=== PATIENT | male | born 1960 | race Caucasian/White ===

== ENCOUNTER 2017-09-27 13:19 | Inpatient (IN) ==
[2017-09-27 13:56] LABS: Basophils # 0.1 10*3/uL (0.0-0.2); Basophils % 0.6 % (0.0-0.8); Eosinophils # 0.3 10*3/uL (0.0-0.87); Eosinophils % 3.3 % (0.00-10.9); Hematocrit 38.7 VOL% (42.0-52.0); Hemoglobin 12.3 GM/DL (14.0-18.0); Immature Granulocytes % 0.4 %; Immature Granulocytes Absolute 0.03 #; Lymphocytes # 2.8 10*3/uL (1.4-4.0); Lymphocytes % 32.8 % (21.2-54.2); Mean Corpuscular HGB Conc 31.8 GM/DL (32-36); Mean Corpuscular Hemoglobin 26 PG (27-34); Mean Corpuscular Volume 80.3 FL (87-102); Mean Platelet Volume 11.3 FL (9.6-12.0); Monocytes % 11.7 % (1.7-12.7); Neutrophils # 4.3 10*3/uL (1.4-7.4); Neutrophils % 51.2 % (38.7-73.9); Platelet Count 430 T/CUMM (130-400); Red Blood Count 4.82 MC/CUMM (3.8-5.5); Red Cell Distribution Width 17.2 % (9.3-17.3); White Blood Count 8.5 T/CUMM (4-12)
[2017-09-27 14:13] LABS: INR 1.1; PT Patient Result 11.2 SECS; Partial Thromboplastin Time 30.5 SECS (0-40)
[2017-09-27] MEDS ORDERED: ALBUTEROL NEB SOLN 5 MG/ML 20 ML/BOTTLE CONT NEB STA (14:15)
[2017-09-27] MEDS ORDERED: PANTOPRAZOLE 40 MG VIAL IV STA (14:15)
[2017-09-27] MEDS ORDERED: METOCLOPRAMIDE 10 MG/2 ML VIAL IV STA (14:15)
[2017-09-27] MEDS ORDERED: methylPREDNISolone SOD SUC 125 MG/2 ML VIAL IV STA (14:15)
[2017-09-27 14:18] LABS: Alanine Aminotransferase 19 U/L (16-61); Albumin 3.4 G/DL (3.4-5.0); Alkaline Phosphatase 138 U/L (45-117); Aspartate Amino Transferase 13 U/L (0-37); Bilirubin,Total < 0.39 MG/DL (0.2-1.0); Blood Urea Nitrogen 9 MG/DL (7-18); Calcium 9.6 MG/DL (8.5-10.1); Glucose 96 MG/DL (74-106); Osmolality,Calculated 271.8 MOS/KG (273-304); Potassium 4.3 MMOL/L (3.5-5.1); Sodium 137 MMOL/L (136-145); Total Protein 8.4 G/DL (6.4-8.3)
[2017-09-27 16:25] LABS: Troponin I Only < 0.015 NG/ML (0.00-0.045)
[2017-09-27 16:28] LABS: % Iron Saturation 30.8 % (18-50)
[2017-09-27] MEDS ORDERED: ACETAMINOPHEN 325 MG TABLET PO PRN (17:23)
[2017-09-27] MEDS ORDERED: ONDANSETRON 4 MG/2 ML VIAL IV PRN (17:23)
[2017-09-27] MEDS ORDERED: SODIUM CHLORIDE 0.9% 1,000 ML IV PRN (17:26)
[2017-09-27] MEDS ORDERED: SODIUM CHLORIDE 0.9% 1,000 ML IV ONE (17:27)
[2017-09-27] MEDS ORDERED: PANTOPRAZOLE INJ 200 MG in SODIUM CHLORIDE 0.9% 250 ML IV SCH (17:30)
[2017-09-27] MEDS ORDERED: ALBUTEROL 2.5 MG/3 ML NEB RESP TX PRN (17:32)
[2017-09-27] MEDS ORDERED: LEVOFLOXACIN INJ 100 ML IV ONE (18:23)
[2017-09-27] MEDS: LEVOFLOXACIN INJ 500 MG in PREMIX 1 EACH IV SCH (18:30)
[2017-09-27] MEDS: ALBUTEROL/IPRATROPIUM 3 ML NEB RESP TX SCH (20:01)
[2017-09-27] MEDS: PANTOPRAZOLE 40 MG VIAL IV SCH (21:08)
[2017-09-27] MEDS: FLUTICASONE/SALMETEROL 250-50 DISKUS 14 DOSE INH SCH (21:08)
[2017-09-27] MEDS: FERROUS SULFATE 325 MG TABLET PO SCH (21:08)
[2017-09-27] MEDS: CHANTIX 1MG PO SCH (22:00)
[2017-09-27] MEDS: SODIUM CHLORIDE 0.9% 1,000 ML IV SCH (22:30)
[2017-09-27 22:41] LABS: Hematocrit 32.6 VOL% (42.0-52.0); Hemoglobin 10.2 GM/DL (14.0-18.0)
[2017-09-28] MEDS: ALBUTEROL/IPRATROPIUM 3 ML NEB RESP TX SCH ×4 (02:13→19:53)
[2017-09-28 03:04] LABS: Hematocrit 31.7 VOL% (42.0-52.0); Hematocrit 32.3 VOL% (42.0-52.0); Hemoglobin 10.1 GM/DL (14.0-18.0); Hemoglobin 10.4 GM/DL (14.0-18.0); Immature Granulocytes % 0.2 %; Immature Granulocytes Absolute 0.01 #; Lymphocytes # 1.1 10*3/uL (1.4-4.0); Lymphocytes % 25.7 % (21.2-54.2); Mean Corpuscular HGB Conc 32.8 GM/DL (32-36); Mean Corpuscular Hemoglobin 26 PG (27-34); Mean Corpuscular Volume 78.3 FL (87-102); Mean Platelet Volume 11.3 FL (9.6-12.0); Monocytes # 0.4 10*3/uL (0.11-0.8); Monocytes % 8.6 % (1.7-12.7); Neutrophils # 2.7 10*3/uL (1.4-7.4); Neutrophils % 65.5 % (38.7-73.9); Platelet Count 330 T/CUMM (130-400); Red Blood Count 4.05 MC/CUMM (3.8-5.5); Red Cell Distribution Width 17.2 % (9.3-17.3); White Blood Count 4.1 T/CUMM (4-12)
[2017-09-28] MEDS: methylPREDNISolone SOD SUC 40 MG/1 ML VIAL IV SCH ×2 (03:30→14:29)
[2017-09-28 03:31] LABS: Calcium 8.5 MG/DL (8.5-10.1); Osmolality,Calculated 280.4 MOS/KG (273-304); Potassium 4.1 MMOL/L (3.5-5.1)
[2017-09-28] MEDS: SODIUM CHLORIDE 0.9% 1,000 ML IV SCH ×4 (03:34→22:47)
[2017-09-28 09:17] LABS: Hemoglobin 10.4 GM/DL (14.0-18.0)
[2017-09-28] MEDS: FLUTICASONE/SALMETEROL 250-50 DISKUS 14 DOSE INH SCH ×2 (09:19→21:03)
[2017-09-28] MEDS: PANTOPRAZOLE 40 MG VIAL IV SCH ×2 (09:20→21:03)
[2017-09-28] MEDS: ERGOCALCIFEROL 50,000 UNIT CAPSULE PO SCH (09:20)
[2017-09-28] MEDS: FERROUS SULFATE 325 MG TABLET PO SCH ×3 (09:20→21:03)
[2017-09-28] MEDS: MULTIVITAMIN (CENTRUM) TABLET PO SCH (09:20)
[2017-09-28] MEDS ORDERED: NICOTINE 14 MG/24 HR PATCH TRANSDERM PRN (10:46)
[2017-09-28] MEDS: DOCUSATE SODIUM 100 MG CAPSULE PO SCH ×2 (11:31→21:03)
[2017-09-28 14:03] LABS: Hematocrit 30.8 VOL% (42.0-52.0); Hemoglobin 9.7 GM/DL (14.0-18.0)
[2017-09-28] MEDS: LEVOFLOXACIN INJ 500 MG in PREMIX 1 EACH IV SCH (17:37)
[2017-09-28] MEDS: ACETAMINOPHEN 325 MG TABLET PO PRN (21:02)
[2017-09-29] MEDS: ALBUTEROL/IPRATROPIUM 3 ML NEB RESP TX SCH ×4 (01:24→19:28)
[2017-09-29] MEDS: methylPREDNISolone SOD SUC 40 MG/1 ML VIAL IV SCH ×3 (01:53→20:33)
[2017-09-29 06:50] LABS: Hematocrit 32.3 VOL% (42.0-52.0); Hemoglobin 10.1 GM/DL (14.0-18.0); Immature Granulocytes % 0.7 %; Immature Granulocytes Absolute 0.05 #; Lymphocytes # 1.1 10*3/uL (1.4-4.0); Lymphocytes % 16.1 % (21.2-54.2); Mean Corpuscular HGB Conc 31.3 GM/DL (32-36); Mean Corpuscular Hemoglobin 25 PG (27-34); Mean Corpuscular Volume 80.3 FL (87-102); Mean Platelet Volume 11.6 FL (9.6-12.0); Monocytes # 0.4 10*3/uL (0.11-0.8); Monocytes % 5.3 % (1.7-12.7); Neutrophils # 5.3 10*3/uL (1.4-7.4); Neutrophils % 77.9 % (38.7-73.9); Platelet Count 373 T/CUMM (130-400); Red Blood Count 4.02 MC/CUMM (3.8-5.5); Red Cell Distribution Width 18.2 % (9.3-17.3); White Blood Count 6.8 T/CUMM (4-12)
[2017-09-29 07:17] LABS: Calcium 8.5 MG/DL (8.5-10.1); Osmolality,Calculated 282.1 MOS/KG (273-304)
[2017-09-29] MEDS: SODIUM CHLORIDE 0.9% 1,000 ML IV SCH ×2 (09:02→16:38)
[2017-09-29] MEDS: PANTOPRAZOLE 40 MG VIAL IV SCH ×2 (09:57→20:26)
[2017-09-29] MEDS: FERROUS SULFATE 325 MG TABLET PO SCH ×2 (10:00→16:38)
[2017-09-29] MEDS: FLUTICASONE/SALMETEROL 250-50 DISKUS 14 DOSE INH SCH ×2 (10:00→20:30)
[2017-09-29] MEDS: DOCUSATE SODIUM 100 MG CAPSULE PO SCH ×2 (10:00→20:27)
[2017-09-29] MEDS: CHANTIX 1MG PO SCH ×2 (10:00→20:28)
[2017-09-29] MEDS: MULTIVITAMIN (CENTRUM) TABLET PO SCH (10:00)
[2017-09-29] MEDS ORDERED: BISACODYL 5 MG TABLET PO ONE (12:00)
[2017-09-29] MEDS ORDERED: PROPOFOL 200 MG/20 ML VIAL IV ONE (14:08)
[2017-09-29] MEDS ORDERED: LIDOCAINE 2% 5 ML VIAL ONE (14:08)
[2017-09-29] MEDS: ACETAMINOPHEN 325 MG TABLET PO PRN (16:38)
[2017-09-29] MEDS ORDERED: POLYETHYLENE GLYCOL POWDER 255 GM BOTTLE PO ONE (18:50)
[2017-09-29] MEDS: LEVOFLOXACIN INJ 500 MG in PREMIX 1 EACH IV SCH (18:54)
[2017-09-29] MEDS: NYSTATIN 500,000 UNIT/5 ML UDCUP SWISH/SWAL SCH ×2 (18:55→20:27)
[2017-09-29] MEDS: FLUCONAZOLE 200 MG TABLET PO SCH (18:55)
[2017-09-29] MEDS ORDERED: BISACODYL 5 MG TABLET ONE (19:08)
[2017-09-30] MEDS: SODIUM CHLORIDE 0.9% 1,000 ML IV SCH ×3 (01:46→19:15)
[2017-09-30] MEDS: ALBUTEROL/IPRATROPIUM 3 ML NEB RESP TX SCH ×4 (02:00→20:00)
[2017-09-30] MEDS ORDERED: MAGNESIUM CITRATE 300 ML BOTTLE PO ONE (06:00)
[2017-09-30] MEDS: FLUTICASONE/SALMETEROL 250-50 DISKUS 14 DOSE INH SCH ×2 (10:14→20:57)
[2017-09-30] MEDS: PANTOPRAZOLE 40 MG VIAL IV SCH ×2 (10:14→21:02)
[2017-09-30] MEDS: CHANTIX 1MG PO SCH ×2 (10:15→21:06)
[2017-09-30] MEDS: NYSTATIN 500,000 UNIT/5 ML UDCUP SWISH/SWAL SCH ×4 (10:15→21:02)
[2017-09-30] MEDS: methylPREDNISolone SOD SUC 40 MG/1 ML VIAL IV SCH ×2 (10:16→21:06)
[2017-09-30] MEDS: DOCUSATE SODIUM 100 MG CAPSULE PO SCH ×2 (10:21→20:59)
[2017-09-30] MEDS: FLUCONAZOLE 200 MG TABLET PO SCH (10:21)
[2017-09-30] MEDS: MULTIVITAMIN (CENTRUM) TABLET PO SCH (10:21)
[2017-09-30] MEDS ORDERED: POLYETHYLENE GLYCOL POWDER 255 GM BOTTLE PO ONE (11:59)
[2017-09-30] MEDS: LEVOFLOXACIN INJ 500 MG in PREMIX 1 EACH IV SCH (17:47)
[2017-09-30] MEDS: ACETAMINOPHEN 325 MG TABLET PO PRN (20:58)
[2017-10-01] MEDS: ALBUTEROL/IPRATROPIUM 3 ML NEB RESP TX SCH ×4 (00:20→19:51)
[2017-10-01] MEDS: SODIUM CHLORIDE 0.9% 1,000 ML IV SCH ×3 (03:12→20:58)
[2017-10-01 06:44] LABS: Basophils % 0.1 % (0.0-0.8); Hematocrit 36.1 VOL% (42.0-52.0); Hemoglobin 11.7 GM/DL (14.0-18.0); Immature Granulocytes % 0.7 %; Immature Granulocytes Absolute 0.07 #; Lymphocytes # 2.3 10*3/uL (1.4-4.0); Lymphocytes % 22.6 % (21.2-54.2); Mean Corpuscular HGB Conc 32.4 GM/DL (32-36); Mean Corpuscular Hemoglobin 25 PG (27-34); Mean Corpuscular Volume 78.5 FL (87-102); Mean Platelet Volume 11.9 FL (9.6-12.0); Monocytes % 9.4 % (1.7-12.7); Neutrophils # 6.9 10*3/uL (1.4-7.4); Neutrophils % 67.2 % (38.7-73.9); Platelet Count 449 T/CUMM (130-400); White Blood Count 10.2 T/CUMM (4-12)
[2017-10-01 07:07] LABS: Calcium 8.6 MG/DL (8.5-10.1); Osmolality,Calculated 280.1 MOS/KG (273-304); Potassium 3.6 MMOL/L (3.5-5.1)
[2017-10-01] MEDS: CHANTIX 1MG PO SCH ×2 (08:28→20:57)
[2017-10-01] MEDS: NYSTATIN 500,000 UNIT/5 ML UDCUP SWISH/SWAL SCH ×4 (08:28→20:57)
[2017-10-01] MEDS: FLUCONAZOLE 200 MG TABLET PO SCH (08:28)
[2017-10-01] MEDS: DOCUSATE SODIUM 100 MG CAPSULE PO SCH ×2 (08:28→20:56)
[2017-10-01] MEDS: MULTIVITAMIN (CENTRUM) TABLET PO SCH (08:28)
[2017-10-01] MEDS ORDERED: PROPOFOL 200 MG/20 ML VIAL IV ONE (09:00)
[2017-10-01] MEDS ORDERED: LIDOCAINE 2% 5 ML VIAL ONE (09:00)
[2017-10-01] MEDS: PANTOPRAZOLE 40 MG VIAL IV SCH ×2 (09:20→20:55)
[2017-10-01] MEDS: methylPREDNISolone SOD SUC 40 MG/1 ML VIAL IV SCH ×2 (09:20→20:56)
[2017-10-01] MEDS: FLUTICASONE/SALMETEROL 250-50 DISKUS 14 DOSE INH SCH ×2 (09:21→20:57)
[2017-10-01] MEDS: ACETAMINOPHEN 325 MG TABLET PO PRN (15:00)
[2017-10-01] MEDS: LEVOFLOXACIN INJ 500 MG in PREMIX 1 EACH IV SCH (18:04)
[2017-10-01] MEDS: DORNASE ALFA 2.5 MG/2.5 ML VIAL RESP TX SCH (19:51)
[2017-10-01] MEDS: MONTELUKAST 10 MG TABLET PO SCH (21:03)
[2017-10-01 21:32] LABS: Alanine Aminotransferase 29 U/L (16-61); Albumin 2.7 G/DL (3.4-5.0); Alkaline Phosphatase 81 U/L (45-117); Aspartate Amino Transferase 11 U/L (0-37); Bilirubin,Total < 0.39 MG/DL (0.2-1.0); Blood Urea Nitrogen 8 MG/DL (7-18); Calcium 8.1 MG/DL (8.5-10.1); Glucose 135 MG/DL (74-106); Osmolality,Calculated 282.1 MOS/KG (273-304); Potassium 3.2 MMOL/L (3.5-5.1); Sodium 142 MMOL/L (136-145); Total Protein 6.3 G/DL (6.4-8.3)
[2017-10-02] MEDS: ALBUTEROL/IPRATROPIUM 3 ML NEB RESP TX SCH ×4 (00:29→19:38)
[2017-10-02] MEDS: SODIUM CHLORIDE 0.9% 1,000 ML IV SCH ×3 (05:34→17:15)
[2017-10-02 06:25] LABS: Free T4 (Free Thyroxine) 1.42 NG/DL (0.76-1.46); Thyroid Stimulating Hormone 0.025 uIU/ml (0.358-3.74)
[2017-10-02] MEDS: DORNASE ALFA 2.5 MG/2.5 ML VIAL RESP TX SCH ×2 (07:26→19:38)
[2017-10-02] MEDS: DOCUSATE SODIUM 100 MG CAPSULE PO SCH ×2 (10:19→20:39)
[2017-10-02] MEDS: NYSTATIN 500,000 UNIT/5 ML UDCUP SWISH/SWAL SCH ×4 (10:19→20:39)
[2017-10-02] MEDS: MULTIVITAMIN (CENTRUM) TABLET PO SCH (10:19)
[2017-10-02] MEDS: CHANTIX 1MG PO SCH ×2 (10:19→20:41)
[2017-10-02] MEDS: FLUCONAZOLE 200 MG TABLET PO SCH (10:19)
[2017-10-02] MEDS: PANTOPRAZOLE 40 MG VIAL IV SCH ×2 (10:19→20:45)
[2017-10-02] MEDS: MONTELUKAST 10 MG TABLET PO SCH ×2 (10:20→20:39)
[2017-10-02] MEDS: FLUTICASONE/SALMETEROL 250-50 DISKUS 14 DOSE INH SCH ×2 (10:20→20:41)
[2017-10-02] MEDS: methylPREDNISolone SOD SUC 40 MG/1 ML VIAL IV SCH ×2 (10:20→20:41)
[2017-10-02] MEDS: ACETAMINOPHEN 325 MG TABLET PO PRN (13:15)
[2017-10-02] MEDS: LEVOFLOXACIN INJ 500 MG in PREMIX 1 EACH IV SCH (17:14)
[2017-10-03] MEDS: ALBUTEROL/IPRATROPIUM 3 ML NEB RESP TX SCH ×4 (00:18→19:50)
[2017-10-03] MEDS: SODIUM CHLORIDE 0.9% 1,000 ML IV SCH ×4 (01:33→19:14)
[2017-10-03] MEDS: DORNASE ALFA 2.5 MG/2.5 ML VIAL RESP TX SCH ×2 (07:36→19:50)
[2017-10-03] MEDS: methylPREDNISolone SOD SUC 40 MG/1 ML VIAL IV SCH ×3 (08:09→21:57)
[2017-10-03] MEDS: PANTOPRAZOLE 40 MG VIAL IV SCH ×2 (08:09→21:56)
[2017-10-03] MEDS: FLUTICASONE/SALMETEROL 250-50 DISKUS 14 DOSE INH SCH ×2 (08:10→21:56)
[2017-10-03 08:20] LABS: Basophils % 0.1 % (0.0-0.8); Eosinophils % 0.1 % (0.00-10.9); Hematocrit 35.5 VOL% (42.0-52.0); Hemoglobin 11.3 GM/DL (14.0-18.0); Immature Granulocytes % 0.8 %; Immature Granulocytes Absolute 0.07 #; Lymphocytes # 2.2 10*3/uL (1.4-4.0); Lymphocytes % 26.6 % (21.2-54.2); Mean Corpuscular HGB Conc 31.8 GM/DL (32-36); Mean Corpuscular Hemoglobin 26 PG (27-34); Mean Corpuscular Volume 80.1 FL (87-102); Mean Platelet Volume 10.8 FL (9.6-12.0); Monocytes # 0.8 10*3/uL (0.11-0.8); Monocytes % 9.4 % (1.7-12.7); Neutrophils # 5.3 10*3/uL (1.4-7.4); Platelet Count 369 T/CUMM (130-400); Red Blood Count 4.43 MC/CUMM (3.8-5.5); Red Cell Distribution Width 17.8 % (9.3-17.3); White Blood Count 8.3 T/CUMM (4-12)
[2017-10-03] MEDS: FLUCONAZOLE 200 MG TABLET PO SCH (08:21)
[2017-10-03] MEDS: DOCUSATE SODIUM 100 MG CAPSULE PO SCH ×2 (08:21→21:56)
[2017-10-03] MEDS: CHANTIX 1MG PO SCH ×2 (08:21→21:56)
[2017-10-03] MEDS: NYSTATIN 500,000 UNIT/5 ML UDCUP SWISH/SWAL SCH ×4 (08:21→21:56)
[2017-10-03] MEDS: MULTIVITAMIN (CENTRUM) TABLET PO SCH (08:21)
[2017-10-03] MEDS: MONTELUKAST 10 MG TABLET PO SCH ×2 (08:21→21:56)
[2017-10-03 08:45] LABS: Calcium 8.3 MG/DL (8.5-10.1); Osmolality,Calculated 281.1 MOS/KG (273-304); Potassium 3.8 MMOL/L (3.5-5.1)
[2017-10-03] MEDS ORDERED: PROPOFOL 200 MG/20 ML VIAL IV ONE (12:43)
[2017-10-03] MEDS ORDERED: MIDAZOLAM 2 MG/2 ML VIAL ONE (12:44)
[2017-10-03] MEDS ORDERED: SEVOFLURANE 1 UNIT/15 MINUTE INH ONE (12:44)
[2017-10-03] MEDS ORDERED: ONDANSETRON 4 MG/2 ML VIAL ONE (12:44)
[2017-10-03] MEDS ORDERED: fentaNYL 100 MCG/2 ML VIAL ONE (12:44)
[2017-10-03] MEDS ORDERED: DEXAMETHASONE 10 MG/1 ML VIAL ONE (12:44)
[2017-10-03] MEDS ORDERED: LIDOCAINE 1% 5 ML VIAL ONE (12:44)
[2017-10-03] MEDS ORDERED: ROCURONIUM 100 MG/10 ML VIAL IV ONE (12:45)
[2017-10-03] MEDS ORDERED: GLYCOPYRROLATE 0.4 MG/2 ML VIAL ONE (12:45)
[2017-10-03] MEDS ORDERED: LACTATED RINGERS 1,000 ML IV ONE (12:45)
[2017-10-03] MEDS ORDERED: ACETAMINOPHEN 1,000 MG/100 ML VIAL IV ONE (12:45)
[2017-10-03] MEDS ORDERED: KETOROLAC 30 MG/1 ML VIAL ONE (12:45)
[2017-10-03] MEDS ORDERED: NEOSTIGMINE 10 MG/10 ML VIAL ONE (12:45)
[2017-10-03] MEDS ORDERED: PHENYLEPHRINE 1 MG/10 ML SYRINGE IV ONE (12:45)
[2017-10-03] MEDS: cefOXitin 2,000 MG in SYRINGE 1 EACH IV SCH ×2 (15:55→22:43)
[2017-10-03] MEDS: ACETAMINOPHEN 325 MG TABLET PO PRN (16:01)
[2017-10-03] MEDS: LEVOFLOXACIN INJ 500 MG in PREMIX 1 EACH IV SCH (19:20)
[2017-10-03] MEDS: MORPHINE 4 MG/1 ML VIAL IV PRN ×2 (19:25→22:46)
[2017-10-04] MEDS: MORPHINE 4 MG/1 ML VIAL IV PRN ×3 (01:26→07:48)
[2017-10-04] MEDS: SODIUM CHLORIDE 0.9% 1,000 ML IV SCH ×4 (01:27→23:03)
[2017-10-04] MEDS: ALBUTEROL/IPRATROPIUM 3 ML NEB RESP TX SCH ×4 (02:28→19:42)
[2017-10-04 04:40] LABS: Basophils % 0.1 % (0.0-0.8); Hematocrit 34.2 VOL% (42.0-52.0); Hemoglobin 10.8 GM/DL (14.0-18.0); Immature Granulocytes % 0.6 %; Immature Granulocytes Absolute 0.12 #; Lymphocytes # 1.7 10*3/uL (1.4-4.0); Lymphocytes % 9.2 % (21.2-54.2); Mean Corpuscular HGB Conc 31.6 GM/DL (32-36); Mean Corpuscular Hemoglobin 25 PG (27-34); Mean Corpuscular Volume 80.1 FL (87-102); Mean Platelet Volume 11.5 FL (9.6-12.0); Monocytes # 1.3 10*3/uL (0.11-0.8); Monocytes % 7.1 % (1.7-12.7); Neutrophils # 15.4 10*3/uL (1.4-7.4); Platelet Count 402 T/CUMM (130-400); Red Blood Count 4.27 MC/CUMM (3.8-5.5); Red Cell Distribution Width 17.7 % (9.3-17.3); White Blood Count 18.5 T/CUMM (4-12)
[2017-10-04 05:15] LABS: Calcium 8.4 MG/DL (8.5-10.1); Osmolality,Calculated 272.8 MOS/KG (273-304)
[2017-10-04] MEDS: cefOXitin 2,000 MG in SYRINGE 1 EACH IV SCH (05:31)
[2017-10-04] MEDS: methylPREDNISolone SOD SUC 40 MG/1 ML VIAL IV SCH ×2 (09:05→20:30)
[2017-10-04] MEDS: FLUTICASONE/SALMETEROL 250-50 DISKUS 14 DOSE INH SCH ×2 (09:05→20:20)
[2017-10-04] MEDS: PANTOPRAZOLE 40 MG VIAL IV SCH ×2 (09:06→20:21)
[2017-10-04] MEDS: DORNASE ALFA 2.5 MG/2.5 ML VIAL RESP TX SCH ×2 (09:06→19:42)
[2017-10-04] MEDS ORDERED: MORPHINE 4 MG/1 ML VIAL IV PRN (09:16)
[2017-10-04] MEDS: NYSTATIN 500,000 UNIT/5 ML UDCUP SWISH/SWAL SCH ×4 (09:52→20:22)
[2017-10-04] MEDS: DOCUSATE SODIUM 100 MG CAPSULE PO SCH ×2 (09:52→20:22)
[2017-10-04] MEDS: MULTIVITAMIN (CENTRUM) TABLET PO SCH (09:52)
[2017-10-04] MEDS: FLUCONAZOLE 200 MG TABLET PO SCH (09:52)
[2017-10-04] MEDS: MONTELUKAST 10 MG TABLET PO SCH ×2 (09:53→20:21)
[2017-10-04] MEDS: CHANTIX 1MG PO SCH ×2 (09:53→20:28)
[2017-10-04] MEDS: MORPHINE 10 MG/1 ML VIAL IV PRN ×3 (12:54→20:05)
[2017-10-04] MEDS: LEVOFLOXACIN INJ 500 MG in PREMIX 1 EACH IV SCH (17:52)
[2017-10-05] MEDS: MORPHINE 10 MG/1 ML VIAL IV PRN ×3 (00:41→21:17)
[2017-10-05] MEDS: ALBUTEROL/IPRATROPIUM 3 ML NEB RESP TX SCH ×4 (00:56→20:28)
[2017-10-05 03:58] LABS: Basophils % 0.1 % (0.0-0.8); Hematocrit 33.8 VOL% (42.0-52.0); Immature Granulocytes % 0.6 %; Immature Granulocytes Absolute 0.06 #; Lymphocytes % 9.3 % (21.2-54.2); Mean Corpuscular HGB Conc 32.5 GM/DL (32-36); Mean Corpuscular Hemoglobin 26 PG (27-34); Mean Corpuscular Volume 78.6 FL (87-102); Mean Platelet Volume 11.8 FL (9.6-12.0); Monocytes # 0.6 10*3/uL (0.11-0.8); Monocytes % 5.8 % (1.7-12.7); Neutrophils # 9.2 10*3/uL (1.4-7.4); Neutrophils % 84.2 % (38.7-73.9); Platelet Count 332 T/CUMM (130-400); Red Cell Distribution Width 17.7 % (9.3-17.3); White Blood Count 10.9 T/CUMM (4-12)
[2017-10-05] MEDS: SODIUM CHLORIDE 0.9% 1,000 ML IV SCH ×3 (05:08→22:24)
[2017-10-05] MEDS: ACETAMINOPHEN 325 MG TABLET PO PRN ×3 (05:36→16:11)
[2017-10-05] MEDS: DORNASE ALFA 2.5 MG/2.5 ML VIAL RESP TX SCH ×2 (08:03→20:28)
[2017-10-05] MEDS: MONTELUKAST 10 MG TABLET PO SCH ×2 (08:13→21:03)
[2017-10-05] MEDS: FLUCONAZOLE 200 MG TABLET PO SCH (08:15)
[2017-10-05] MEDS: PANTOPRAZOLE 40 MG VIAL IV SCH ×2 (08:15→21:10)
[2017-10-05] MEDS: methylPREDNISolone SOD SUC 40 MG/1 ML VIAL IV SCH ×2 (08:15→21:06)
[2017-10-05] MEDS: DOCUSATE SODIUM 100 MG CAPSULE PO SCH ×3 (08:15→21:04)
[2017-10-05] MEDS: ERGOCALCIFEROL 50,000 UNIT CAPSULE PO SCH ×2 (08:15→11:36)
[2017-10-05] MEDS: NYSTATIN 500,000 UNIT/5 ML UDCUP SWISH/SWAL SCH ×4 (08:15→21:04)
[2017-10-05] MEDS: MULTIVITAMIN (CENTRUM) TABLET PO SCH (08:15)
[2017-10-05] MEDS: CHANTIX 1MG PO SCH ×2 (08:16→21:05)
[2017-10-05] MEDS: FLUTICASONE/SALMETEROL 250-50 DISKUS 14 DOSE INH SCH ×2 (08:16→21:06)
[2017-10-05] MEDS: LEVOFLOXACIN INJ 500 MG in PREMIX 1 EACH IV SCH (19:19)
[2017-10-06] MEDS: ALBUTEROL/IPRATROPIUM 3 ML NEB RESP TX SCH ×4 (00:55→19:03)
[2017-10-06] MEDS: SODIUM CHLORIDE 0.9% 1,000 ML IV SCH ×2 (04:19→06:06)
[2017-10-06] MEDS: MORPHINE 10 MG/1 ML VIAL IV PRN ×2 (06:08→20:45)
[2017-10-06] MEDS: DORNASE ALFA 2.5 MG/2.5 ML VIAL RESP TX SCH ×2 (07:00→19:03)
[2017-10-06] MEDS: PANTOPRAZOLE 40 MG VIAL IV SCH ×2 (09:46→20:36)
[2017-10-06] MEDS: MULTIVITAMIN (CENTRUM) TABLET PO SCH (09:46)
[2017-10-06] MEDS: MONTELUKAST 10 MG TABLET PO SCH ×2 (09:46→20:31)
[2017-10-06] MEDS: CHANTIX 1MG PO SCH ×2 (09:47→20:31)
[2017-10-06] MEDS: DOCUSATE SODIUM 100 MG CAPSULE PO SCH ×2 (09:47→20:31)
[2017-10-06] MEDS: methylPREDNISolone SOD SUC 40 MG/1 ML VIAL IV SCH ×2 (09:47→20:31)
[2017-10-06] MEDS: FLUTICASONE/SALMETEROL 250-50 DISKUS 14 DOSE INH SCH ×2 (09:47→20:32)
[2017-10-06] MEDS: FLUCONAZOLE 200 MG TABLET PO SCH (09:47)
[2017-10-06] MEDS: NYSTATIN 500,000 UNIT/5 ML UDCUP SWISH/SWAL SCH (09:48)
[2017-10-06 12:11] LABS: Calcium 8.3 MG/DL (8.5-10.1); Osmolality,Calculated 272.7 MOS/KG (273-304); Potassium 4.2 MMOL/L (3.5-5.1)
[2017-10-06] MEDS: LEVOFLOXACIN INJ 500 MG in PREMIX 1 EACH IV SCH (18:05)
[2017-10-07] MEDS: MORPHINE 10 MG/1 ML VIAL IV PRN ×7 (00:55→20:47)
[2017-10-07] MEDS: ALBUTEROL/IPRATROPIUM 3 ML NEB RESP TX SCH ×5 (04:23→22:55)
[2017-10-07 04:32] LABS: Hematocrit 34.5 VOL% (42.0-52.0); Immature Granulocytes % 1.1 %; Immature Granulocytes Absolute 0.22 #; Lymphocytes # 1.2 10*3/uL (1.4-4.0); Mean Corpuscular HGB Conc 31.9 GM/DL (32-36); Mean Corpuscular Hemoglobin 25 PG (27-34); Mean Corpuscular Volume 79.5 FL (87-102); Mean Platelet Volume 11.4 FL (9.6-12.0); Monocytes # 1.7 10*3/uL (0.11-0.8); Monocytes % 8.4 % (1.7-12.7); Neutrophils # 17.3 10*3/uL (1.4-7.4); Neutrophils % 84.5 % (38.7-73.9); Platelet Count 344 T/CUMM (130-400); Red Blood Count 4.34 MC/CUMM (3.8-5.5); Red Cell Distribution Width 17.5 % (9.3-17.3); White Blood Count 20.5 T/CUMM (4-12)
[2017-10-07 04:56] LABS: Calcium 8.7 MG/DL (8.5-10.1)
[2017-10-07 04:57] LABS: Hypochromasia Slight; Osmolality,Calculated 271.1 MOS/KG (273-304); Ovalocytes Slight; Platelet Estimate Adequate; Potassium 4.3 MMOL/L (3.5-5.1)
[2017-10-07] MEDS: DORNASE ALFA 2.5 MG/2.5 ML VIAL RESP TX SCH ×2 (08:16→20:16)
[2017-10-07] MEDS: PANTOPRAZOLE 40 MG VIAL IV SCH ×2 (08:56→20:47)
[2017-10-07] MEDS ORDERED: LACTATED RINGERS 1,000 ML IV ONE ×2 (09:00→15:21)
[2017-10-07] MEDS ORDERED: POTASSIUM CHLORIDE INJ 20 MEQ in LACTATED RINGERS 1,000 ML IV SCH (09:30)
[2017-10-07] MEDS ORDERED: POTASSIUM CHLORIDE RIDER 10 MEQ in PREMIX 1 EACH IV PRN (09:45)
[2017-10-07] MEDS: MULTIVITAMIN (CENTRUM) TABLET PO SCH (10:46)
[2017-10-07] MEDS: MONTELUKAST 10 MG TABLET PO SCH ×2 (10:46→20:07)
[2017-10-07] MEDS: FLUTICASONE/SALMETEROL 250-50 DISKUS 14 DOSE INH SCH ×2 (10:46→20:47)
[2017-10-07] MEDS: DOCUSATE SODIUM 100 MG CAPSULE PO SCH ×2 (10:46→20:04)
[2017-10-07] MEDS: CHANTIX 1MG PO SCH ×2 (10:46→20:06)
[2017-10-07] MEDS: LACTATED RINGERS 1,000 ML IV SCH ×2 (10:47→18:00)
[2017-10-07] MEDS: methylPREDNISolone SOD SUC 40 MG/1 ML VIAL IV SCH ×2 (11:18→20:46)
[2017-10-07] MEDS ORDERED: MIDAZOLAM 2 MG/2 ML VIAL ONE ×2 (12:16→15:21)
[2017-10-07] MEDS ORDERED: SUGAMMADEX 200 MG/2 ML VIAL IV ONE (13:24)
[2017-10-07] MEDS ORDERED: MORPHINE 10 MG/1 ML VIAL ONE (13:52)
[2017-10-07] MEDS ORDERED: ONDANSETRON 4 MG/2 ML VIAL ONE ×2 (13:53→15:21)
[2017-10-07] MEDS ORDERED: ONDANSETRON 4 MG/2 ML VIAL IV PRN (14:03)
[2017-10-07 14:09] LABS: Apearance,Urine CLEAR (Clear); Bilirubin,Urine Negative (Negative); Blood, Urine Negative (Negative); Glucose,Urine (UA) Negative (Negative); Ketones,Urine Negative (Negative); Nitrite,Urine Negative (Negative); Protein,Urine Negative; RBC,Urine 5 /HPF (0-4); Urine Color Yellow (Yellow); Urine Specific Gravity 1.047 (1.001-1.035); WBC,Urine 9 /HPF (0-6)
[2017-10-07] MEDS ORDERED: SEVOFLURANE 1 UNIT/15 MINUTE INH ONE (15:20)
[2017-10-07] MEDS ORDERED: PROPOFOL 200 MG/20 ML VIAL IV ONE (15:20)
[2017-10-07] MEDS ORDERED: fentaNYL 100 MCG/2 ML VIAL ONE (15:20)
[2017-10-07] MEDS ORDERED: ALBUTEROL INHALER 8 GM INH ONE (15:21)
[2017-10-07] MEDS ORDERED: ACETAMINOPHEN 1,000 MG/100 ML VIAL IV ONE (15:21)
[2017-10-07] MEDS ORDERED: ROCURONIUM 100 MG/10 ML VIAL IV ONE (15:21)
[2017-10-07] MEDS ORDERED: PHENYLEPHRINE 1 MG/10 ML SYRINGE IV ONE (15:21)
[2017-10-07] MEDS: cefOXitin 2,000 MG in SYRINGE 1 EACH IV SCH ×2 (15:23→20:47)
[2017-10-07] MEDS: KETOROLAC 15 MG/1 ML VIAL IV SCH ×2 (17:07→22:31)
[2017-10-07] MEDS: LEVOFLOXACIN INJ 500 MG in PREMIX 1 EACH IV SCH (18:00)
[2017-10-08] MEDS: LACTATED RINGERS 1,000 ML IV SCH ×5 (02:03→21:22)
[2017-10-08] MEDS: cefOXitin 2,000 MG in SYRINGE 1 EACH IV SCH ×4 (04:46→21:04)
[2017-10-08] MEDS: MORPHINE 10 MG/1 ML VIAL IV PRN ×5 (04:50→20:51)
[2017-10-08] MEDS: KETOROLAC 15 MG/1 ML VIAL IV SCH (04:50)
[2017-10-08 05:41] LABS: Basophils % 0.1 % (0.0-0.8); Hematocrit 33.8 VOL% (42.0-52.0); Hemoglobin 10.6 GM/DL (14.0-18.0); Immature Granulocytes % 0.5 %; Immature Granulocytes Absolute 0.07 #; Lymphocytes # 1.1 10*3/uL (1.4-4.0); Lymphocytes % 8.4 % (21.2-54.2); Mean Corpuscular HGB Conc 31.4 GM/DL (32-36); Mean Corpuscular Hemoglobin 25 PG (27-34); Mean Corpuscular Volume 80.7 FL (87-102); Mean Platelet Volume 11.5 FL (9.6-12.0); Monocytes % 7.2 % (1.7-12.7); Neutrophils # 11.2 10*3/uL (1.4-7.4); Neutrophils % 83.8 % (38.7-73.9); Platelet Count 287 T/CUMM (130-400); Red Blood Count 4.19 MC/CUMM (3.8-5.5); Red Cell Distribution Width 17.4 % (9.3-17.3); White Blood Count 13.4 T/CUMM (4-12)
[2017-10-08 05:57] LABS: Calcium 7.8 MG/DL (8.5-10.1); Osmolality,Calculated 267.2 MOS/KG (273-304); Potassium 4.4 MMOL/L (3.5-5.1)
[2017-10-08] MEDS: ALBUTEROL/IPRATROPIUM 3 ML NEB RESP TX SCH ×4 (07:20→23:49)
[2017-10-08] MEDS: DORNASE ALFA 2.5 MG/2.5 ML VIAL RESP TX SCH ×2 (07:20→18:58)
[2017-10-08] MEDS: MONTELUKAST 10 MG TABLET PO SCH ×2 (09:06→20:57)
[2017-10-08] MEDS: CHANTIX 1MG PO SCH ×2 (09:06→20:56)
[2017-10-08] MEDS: DOCUSATE SODIUM 100 MG CAPSULE PO SCH ×2 (09:06→20:56)
[2017-10-08] MEDS: FLUTICASONE/SALMETEROL 250-50 DISKUS 14 DOSE INH SCH ×2 (09:06→20:54)
[2017-10-08] MEDS: MULTIVITAMIN (CENTRUM) TABLET PO SCH (09:06)
[2017-10-08] MEDS: PANTOPRAZOLE 40 MG VIAL IV SCH ×2 (09:08→21:10)
[2017-10-08] MEDS: KETOROLAC 30 MG/1 ML VIAL IV SCH ×3 (09:12→21:18)
[2017-10-08] MEDS: methylPREDNISolone SOD SUC 40 MG/1 ML VIAL IV SCH ×2 (09:14→21:14)
[2017-10-08] MEDS ORDERED: LACTATED RINGERS 1,000 ML IV ONE (09:41)
[2017-10-08] MEDS: metroNIDAZOLE INJ 500 MG in PREMIX 1 EACH IV SCH ×2 (11:44→18:41)
[2017-10-08] MEDS: LEVOFLOXACIN INJ 500 MG in PREMIX 1 EACH IV SCH (17:06)
[2017-10-09] MEDS: MORPHINE 10 MG/1 ML VIAL IV PRN ×3 (02:00→12:45)
[2017-10-09] MEDS: cefOXitin 2,000 MG in SYRINGE 1 EACH IV SCH ×4 (03:05→21:53)
[2017-10-09] MEDS: KETOROLAC 30 MG/1 ML VIAL IV SCH ×4 (03:08→21:54)
[2017-10-09] MEDS: metroNIDAZOLE INJ 500 MG in PREMIX 1 EACH IV SCH ×3 (03:10→18:34)
[2017-10-09 06:09] LABS: Basophils % 0.1 % (0.0-0.8); Hematocrit 30.1 VOL% (42.0-52.0); Immature Granulocytes % 0.6 %; Immature Granulocytes Absolute 0.11 #; Lymphocytes # 0.9 10*3/uL (1.4-4.0); Lymphocytes % 4.9 % (21.2-54.2); Mean Corpuscular HGB Conc 33.2 GM/DL (32-36); Mean Corpuscular Hemoglobin 26 PG (27-34); Mean Corpuscular Volume 78.8 FL (87-102); Mean Platelet Volume 12.8 FL (9.6-12.0); Monocytes # 1.2 10*3/uL (0.11-0.8); Monocytes % 6.8 % (1.7-12.7); Neutrophils # 15.7 10*3/uL (1.4-7.4); Neutrophils % 87.6 % (38.7-73.9); Platelet Count 261 T/CUMM (130-400); Red Blood Count 3.82 MC/CUMM (3.8-5.5); Red Cell Distribution Width 17.3 % (9.3-17.3)
[2017-10-09 06:28] LABS: Hypochromasia 1+; Microcytosis 1+; Ovalocytes Slight; Platelet Estimate Normal
[2017-10-09 06:37] LABS: Calcium 7.9 MG/DL (8.5-10.1); Osmolality,Calculated 269.2 MOS/KG (273-304); Potassium 4.1 MMOL/L (3.5-5.1)
[2017-10-09] MEDS: DORNASE ALFA 2.5 MG/2.5 ML VIAL RESP TX SCH ×2 (07:43→20:29)
[2017-10-09] MEDS: ALBUTEROL/IPRATROPIUM 3 ML NEB RESP TX SCH ×3 (07:43→20:27)
[2017-10-09] MEDS: PANTOPRAZOLE 40 MG VIAL IV SCH ×2 (09:30→21:54)
[2017-10-09] MEDS: methylPREDNISolone SOD SUC 40 MG/1 ML VIAL IV SCH ×2 (09:31→21:54)
[2017-10-09] MEDS: LACTATED RINGERS 1,000 ML IV SCH ×4 (09:34→23:40)
[2017-10-09] MEDS: CHANTIX 1MG PO SCH ×2 (09:35→20:28)
[2017-10-09] MEDS: DOCUSATE SODIUM 100 MG CAPSULE PO SCH ×2 (09:35→20:28)
[2017-10-09] MEDS: MONTELUKAST 10 MG TABLET PO SCH ×2 (09:35→20:28)
[2017-10-09] MEDS: FLUTICASONE/SALMETEROL 250-50 DISKUS 14 DOSE INH SCH ×2 (09:35→20:17)
[2017-10-09] MEDS: MULTIVITAMIN (CENTRUM) TABLET PO SCH (09:35)
[2017-10-09] MEDS ORDERED: HEPARIN/NACL 0.9% 2 UNITS/ML 500 ML IV ONE (14:18)
[2017-10-09 15:13] LABS: ABG Base Excess -0.7 MMOL/L (-2.5-2.5); ABG HCO3 23.9 MMOL/L (20-26); ABG Oxygen Saturation 99.9 % (95-100); ABG PCO2 43.8 MM HG (35-48); ABG PH 7.362 (7.35-7.45); ABG TCO2 22.9 MMOL/L (23-27); Glucose Heart Surgery 115 MG/DL (74-106); Hematocrit Heart Surgery 28.7 PERCENT (42-52); Hemoglobin Heart Surgery 9.3 G/DL (14.0-18.0); Ionized Calcium Arterial 1.14 MMOL/L (1.21-1.46); PCO2 Patient Temp Arterial 43.8 MMHG; PH Patient Temp Arterial 7.362; Patient Temperature 37 CELCIUS; Potassium Heart/CVR 3.9 MMOL/L (3.5-5.1); Sodium Heart/CVR 130 MMOL/L (135-145)
[2017-10-09] MEDS ORDERED: PROPOFOL 200 MG/20 ML VIAL IV ONE (16:53)
[2017-10-09] MEDS ORDERED: SEVOFLURANE 1 UNIT/15 MINUTE INH ONE (16:53)
[2017-10-09] MEDS ORDERED: fentaNYL 100 MCG/2 ML VIAL ONE (16:53)
[2017-10-09] MEDS ORDERED: MIDAZOLAM 2 MG/2 ML VIAL ONE (16:53)
[2017-10-09] MEDS ORDERED: MIDAZOLAM 10 MG/2 ML VIAL ONE (16:54)
[2017-10-09] MEDS ORDERED: ROCURONIUM 100 MG/10 ML VIAL IV ONE (16:54)
[2017-10-09] MEDS ORDERED: SODIUM CHLORIDE 0.9% 1,000 ML IV ONE ×2 (16:54→18:47)
[2017-10-09] MEDS ORDERED: LACTATED RINGERS 4,000 ML IV ONE (16:54)
[2017-10-09 16:57] LABS: ABG HCO3 24.9 MMOL/L (20-26); ABG Oxygen Saturation 96.1 % (95-100); ABG PCO2 46.8 MM HG (35-48); ABG PH 7.344 (7.35-7.45); ABG PO2 94.6 MM HG (80-95); ABG TCO2 26.3 MMOL/L (23-27)
[2017-10-09] MEDS: PROPOFOL 1,000 MG/100 ML BOTTLE IV SCH (17:19)
[2017-10-09] MEDS: LEVOFLOXACIN INJ 500 MG in PREMIX 1 EACH IV SCH (18:34)
[2017-10-09 18:57] LABS: Hemoglobin 10.3 GM/DL (14.0-18.0)
[2017-10-09] MEDS: NOREPINEPHRINE 8 MG in SODIUM CHLORIDE 0.9% 242 ML IV PRN (20:10)
[2017-10-09] MEDS: fentaNYL INJ 1,250 MCG in SODIUM CHLORIDE 0.9% 225 ML IV PRN (23:40)
[2017-10-10] MEDS: ALBUTEROL/IPRATROPIUM 3 ML NEB RESP TX SCH ×4 (00:55→19:42)
[2017-10-10] MEDS: NOREPINEPHRINE 8 MG in SODIUM CHLORIDE 0.9% 242 ML IV PRN ×2 (03:30→14:06)
[2017-10-10] MEDS: cefOXitin 2,000 MG in SYRINGE 1 EACH IV SCH ×2 (03:30→10:29)
[2017-10-10] MEDS: KETOROLAC 30 MG/1 ML VIAL IV SCH ×4 (03:32→22:20)
[2017-10-10] MEDS: metroNIDAZOLE INJ 500 MG in PREMIX 1 EACH IV SCH (03:35)
[2017-10-10 05:40] LABS: Basophils # 0.1 10*3/uL (0.0-0.2); Basophils % 0.2 % (0.0-0.8); Hematocrit 31.7 VOL% (42.0-52.0); Hemoglobin 10.1 GM/DL (14.0-18.0); Immature Granulocytes Absolute 0.28 #; Lymphocytes # 0.9 10*3/uL (1.4-4.0); Lymphocytes % 3.3 % (21.2-54.2); Mean Corpuscular HGB Conc 31.9 GM/DL (32-36); Mean Corpuscular Hemoglobin 26 PG (27-34); Mean Corpuscular Volume 80.9 FL (87-102); Mean Platelet Volume 12.3 FL (9.6-12.0); Monocytes # 1.5 10*3/uL (0.11-0.8); Monocytes % 5.3 % (1.7-12.7); Neutrophils # 25.3 10*3/uL (1.4-7.4); Neutrophils % 90.2 % (38.7-73.9); Platelet Count 384 T/CUMM (130-400); Red Blood Count 3.92 MC/CUMM (3.8-5.5); Red Cell Distribution Width 17.2 % (9.3-17.3); White Blood Count 28.1 T/CUMM (4-12)
[2017-10-10] MEDS: LACTATED RINGERS 1,000 ML IV SCH ×4 (05:45→22:16)
[2017-10-10 06:22] LABS: Band Neutrophils 2 % (0-10); Calcium 7.4 MG/DL (8.5-10.1); Hypochromasia 1+; Lymphocytes 5 % (20-55); Microcytosis Slight; Osmolality,Calculated 276.7 MOS/KG (273-304); Platelet Estimate Adequate; Potassium 4.4 MMOL/L (3.5-5.1); Segmented Neutrophils 89 % (50-85); Total Cells Counted 100
[2017-10-10] MEDS: PROPOFOL 1,000 MG/100 ML BOTTLE IV SCH ×2 (06:24→22:09)
[2017-10-10] MEDS ORDERED: MAGNESIUM SULF RIDER 2 GM in PREMIX 1 EACH IV PRN (07:38)
[2017-10-10] MEDS ORDERED: MAGNESIUM SULF RIDER 4 GM in PREMIX 1 EACH IV PRN (07:38)
[2017-10-10] MEDS: DORNASE ALFA 2.5 MG/2.5 ML VIAL RESP TX SCH ×2 (07:48→19:42)
[2017-10-10 08:21] LABS: ABG HCO3 25.3 MMOL/L (20-26); ABG Oxygen Saturation 99.6 % (95-100); ABG PCO2 41.2 MM HG (35-48); ABG PH 7.404 (7.35-7.45); ABG TCO2 23.4 MMOL/L (23-27)
[2017-10-10] MEDS: VANCOMYCIN INJ 1,250 MG in SODIUM CHLORIDE 0.9% 250 ML IV SCH ×2 (09:35→20:30)
[2017-10-10] MEDS: PIPERACILLIN/TAZOBACTAM 3,375 MG in SODIUM CHLORIDE 0.9% 100 ML IV SCH ×2 (09:36→18:06)
[2017-10-10] MEDS: MULTIVITAMIN (CENTRUM) TABLET PO SCH (09:37)
[2017-10-10] MEDS: MONTELUKAST 10 MG TABLET PO SCH ×2 (09:37→21:05)
[2017-10-10] MEDS: PANTOPRAZOLE 40 MG VIAL IV SCH ×2 (09:38→21:10)
[2017-10-10] MEDS: methylPREDNISolone SOD SUC 40 MG/1 ML VIAL IV SCH ×2 (09:38→21:12)
[2017-10-10] MEDS: FLUTICASONE/SALMETEROL 250-50 DISKUS 14 DOSE INH SCH ×2 (10:17→22:15)
[2017-10-10] MEDS: DOCUSATE SODIUM 100 MG CAPSULE PO SCH ×2 (10:17→21:05)
[2017-10-10] MEDS: CHANTIX 1MG PO SCH ×2 (10:17→22:16)
[2017-10-10] MEDS: fentaNYL INJ 1,250 MCG in SODIUM CHLORIDE 0.9% 225 ML IV PRN ×2 (10:54→22:00)
[2017-10-10] MEDS ORDERED: DEXTROSE 50% 25 GM/50 ML VIAL IV PRN (11:58)
[2017-10-10] MEDS ORDERED: GLUCAGON 1 MG VIAL IM PRN (11:58)
[2017-10-10] MEDS: INSULIN REGULAR 100 UNIT/ML SUBCUT SCH ×3 (14:04→23:08)
[2017-10-10] MEDS ORDERED: TRACE ELEMENTS (5) 1 ML, MULTIVITAMIN INJ 10 ML in AMINO ACIDS/DEXT/LYTE 4.25-15% 2,000 ML IV SCH (17:00)
[2017-10-10] MEDS ORDERED: DEXTROSE 10% 1,000 ML IV PRN (17:00)
[2017-10-10] MEDS: LEVOFLOXACIN INJ 500 MG in PREMIX 1 EACH IV SCH (18:07)
[2017-10-11] MEDS: ALBUTEROL/IPRATROPIUM 3 ML NEB RESP TX SCH ×4 (01:19→21:42)
[2017-10-11] MEDS: PIPERACILLIN/TAZOBACTAM 3,375 MG in SODIUM CHLORIDE 0.9% 100 ML IV SCH ×3 (02:15→17:14)
[2017-10-11] MEDS: KETOROLAC 30 MG/1 ML VIAL IV SCH ×4 (04:26→21:03)
[2017-10-11 05:02] LABS: ABG Base Excess 3.9 MMOL/L (-2.5-2.5); ABG HCO3 27.9 MMOL/L (20-26); ABG Oxygen Saturation 98.4 % (95-100); ABG PCO2 48.9 MM HG (35-48); ABG PH 7.388 (7.35-7.45); ABG TCO2 27.5 MMOL/L (23-27)
[2017-10-11 05:22] LABS: Basophils % 0.1 % (0.0-0.8); Hemoglobin 8.2 GM/DL (14.0-18.0); Immature Granulocytes Absolute 0.11 #; Lymphocytes # 0.7 10*3/uL (1.4-4.0); Lymphocytes % 6.2 % (21.2-54.2); Mean Corpuscular HGB Conc 31.5 GM/DL (32-36); Mean Corpuscular Hemoglobin 26 PG (27-34); Mean Corpuscular Volume 80.7 FL (87-102); Monocytes # 0.7 10*3/uL (0.11-0.8); Monocytes % 5.6 % (1.7-12.7); Neutrophils # 10.1 10*3/uL (1.4-7.4); Neutrophils % 87.1 % (38.7-73.9); Platelet Count 283 T/CUMM (130-400); Red Blood Count 3.22 MC/CUMM (3.8-5.5); Red Cell Distribution Width 17.2 % (9.3-17.3); White Blood Count 11.6 T/CUMM (4-12)
[2017-10-11 05:59] LABS: Albumin 1.2 G/DL (3.4-5.0); Bilirubin,Total 0.4 MG/DL (0.2-1.0); Calcium 7.6 MG/DL (8.5-10.1); Osmolality,Calculated 278.5 MOS/KG (273-304); Potassium 4.4 MMOL/L (3.5-5.1)
[2017-10-11 06:05] LABS: Prealbumin 6.6 MG/DL (20-40)
[2017-10-11] MEDS ORDERED: FAMOTIDINE 20 MG TABLET PO ONE (06:45)
[2017-10-11] MEDS ORDERED: IPRATROPIUM 500 MCG/2.5 ML NEB RESP TX ONE (06:45)
[2017-10-11] MEDS ORDERED: FAMOTIDINE 20 MG/2 ML VIAL IV ONE (06:45)
[2017-10-11] MEDS ORDERED: DIAZEPAM 5 MG TABLET PO ONE (06:45)
[2017-10-11] MEDS: INSULIN REGULAR 100 UNIT/ML SUBCUT SCH ×3 (07:14→17:32)
[2017-10-11] MEDS ORDERED: SEVOFLURANE 1 UNIT/15 MINUTE INH ONE (08:41)
[2017-10-11] MEDS ORDERED: fentaNYL 100 MCG/2 ML VIAL ONE (08:42)
[2017-10-11] MEDS ORDERED: MIDAZOLAM 2 MG/2 ML VIAL ONE ×2 (08:42)
[2017-10-11] MEDS: DORNASE ALFA 2.5 MG/2.5 ML VIAL RESP TX SCH ×2 (08:54→21:42)
[2017-10-11] MEDS: VANCOMYCIN INJ 1,250 MG in SODIUM CHLORIDE 0.9% 250 ML IV SCH ×3 (09:11→21:25)
[2017-10-11] MEDS: PANTOPRAZOLE 40 MG VIAL IV SCH ×2 (09:13→21:17)
[2017-10-11] MEDS: methylPREDNISolone SOD SUC 40 MG/1 ML VIAL IV SCH ×2 (09:13→21:10)
[2017-10-11] MEDS: FLUTICASONE/SALMETEROL 250-50 DISKUS 14 DOSE INH SCH ×2 (09:14→21:14)
[2017-10-11] MEDS: LACTATED RINGERS 1,000 ML IV SCH ×2 (09:14→18:10)
[2017-10-11] MEDS: DOCUSATE SODIUM 100 MG CAPSULE PO SCH ×2 (09:14→21:13)
[2017-10-11] MEDS: MULTIVITAMIN (CENTRUM) TABLET PO SCH (09:14)
[2017-10-11] MEDS: MONTELUKAST 10 MG TABLET PO SCH ×2 (09:14→21:13)
[2017-10-11] MEDS: CHANTIX 1MG PO SCH ×2 (09:15→21:14)
[2017-10-11 11:02] LABS: ABG Base Excess 3.4 MMOL/L (-2.5-2.5); ABG HCO3 27.5 MMOL/L (20-26); ABG Oxygen Saturation 97.9 % (95-100); ABG PCO2 44.9 MM HG (35-48); ABG PO2 96.8 MM HG (80-95)
[2017-10-11] MEDS: MORPHINE 10 MG/1 ML VIAL IV PRN ×2 (13:54→17:13)
[2017-10-11] MEDS: TRACE ELEMENTS (5) 1 ML, MULTIVITAMIN INJ 10 ML in AMINO ACIDS/DEXT/LYTE 4.25-15% 2,000 ML IV SCH (17:14)
[2017-10-11] MEDS: LEVOFLOXACIN INJ 500 MG in PREMIX 1 EACH IV SCH (17:42)
[2017-10-11] MEDS: ENOXAPARIN 40 MG/0.4 ML SYRINGE SUBCUT SCH (21:20)
[2017-10-12] MEDS: ALBUTEROL/IPRATROPIUM 3 ML NEB RESP TX SCH ×4 (00:05→19:19)
[2017-10-12] MEDS: LACTATED RINGERS 1,000 ML IV SCH ×2 (00:34→08:31)
[2017-10-12] MEDS: INSULIN REGULAR 100 UNIT/ML SUBCUT SCH ×4 (00:42→17:51)
[2017-10-12] MEDS: PIPERACILLIN/TAZOBACTAM 3,375 MG in SODIUM CHLORIDE 0.9% 100 ML IV SCH ×3 (00:45→17:22)
[2017-10-12] MEDS: KETOROLAC 30 MG/1 ML VIAL IV SCH ×4 (03:30→21:43)
[2017-10-12 03:55] LABS: Allen Test Positive; Pt O2 Delivery Device Other
[2017-10-12 03:56] LABS: ABG Base Excess 5.5 MMOL/L (-2.5-2.5); ABG HCO3 29.4 MMOL/L (20-26); ABG Oxygen Saturation 98.8 % (95-100); ABG PCO2 45.9 MM HG (35-48); ABG TCO2 28.1 MMOL/L (23-27)
[2017-10-12] MEDS: VANCOMYCIN INJ 1,250 MG in SODIUM CHLORIDE 0.9% 250 ML IV SCH ×4 (07:09→21:48)
[2017-10-12] MEDS: DORNASE ALFA 2.5 MG/2.5 ML VIAL RESP TX SCH ×2 (08:53→19:19)
[2017-10-12] MEDS: methylPREDNISolone SOD SUC 40 MG/1 ML VIAL IV SCH ×2 (09:15→21:41)
[2017-10-12] MEDS: PANTOPRAZOLE 40 MG VIAL IV SCH ×2 (09:15→21:38)
[2017-10-12] MEDS: MONTELUKAST 10 MG TABLET PO SCH ×2 (09:16→21:38)
[2017-10-12] MEDS: MULTIVITAMIN (CENTRUM) TABLET PO SCH (09:16)
[2017-10-12] MEDS: FLUTICASONE/SALMETEROL 250-50 DISKUS 14 DOSE INH SCH ×2 (09:34→21:52)
[2017-10-12] MEDS: DOCUSATE SODIUM 100 MG CAPSULE PO SCH ×2 (09:35→21:46)
[2017-10-12] MEDS: CHANTIX 1MG PO SCH ×2 (09:35→21:38)
[2017-10-12] MEDS: ERGOCALCIFEROL 50,000 UNIT CAPSULE PO SCH (10:50)
[2017-10-12] MEDS: MORPHINE 10 MG/1 ML VIAL IV PRN ×2 (13:12→17:25)
[2017-10-12] MEDS: TRACE ELEMENTS (5) 1 ML, MULTIVITAMIN INJ 10 ML in AMINO ACIDS/DEXT/LYTE 4.25-15% 2,000 ML IV SCH (13:43)
[2017-10-12] MEDS ORDERED: FAT EMULSION 20% 250 ML IV SCH (14:00)
[2017-10-12] MEDS: LEVOFLOXACIN INJ 500 MG in PREMIX 1 EACH IV SCH (17:26)
[2017-10-12] MEDS: ENOXAPARIN 40 MG/0.4 ML SYRINGE SUBCUT SCH (21:30)
[2017-10-13] MEDS: INSULIN REGULAR 100 UNIT/ML SUBCUT SCH ×3 (01:17→14:27)
[2017-10-13] MEDS: ALBUTEROL/IPRATROPIUM 3 ML NEB RESP TX SCH ×4 (01:40→19:35)
[2017-10-13] MEDS: PIPERACILLIN/TAZOBACTAM 3,375 MG in SODIUM CHLORIDE 0.9% 100 ML IV SCH ×3 (02:13→18:18)
[2017-10-13] MEDS: KETOROLAC 30 MG/1 ML VIAL IV SCH (02:30)
[2017-10-13 03:36] LABS: ABG Base Excess 6.4 MMOL/L (-2.5-2.5); ABG HCO3 30.2 MMOL/L (20-26); ABG Oxygen Saturation 96.8 % (95-100); ABG PCO2 41.5 MM HG (35-48); ABG PH 7.475 (7.35-7.45); ABG PO2 78.8 MM HG (80-95); ABG TCO2 27.8 MMOL/L (23-27)
[2017-10-13 05:45] LABS: Hematocrit 28.9 VOL% (42.0-52.0); Hemoglobin 9.1 GM/DL (14.0-18.0); Immature Granulocytes % 0.6 %; Immature Granulocytes Absolute 0.06 #; Lymphocytes # 0.9 10*3/uL (1.4-4.0); Lymphocytes % 9.3 % (21.2-54.2); Mean Corpuscular HGB Conc 31.5 GM/DL (32-36); Mean Corpuscular Hemoglobin 26 PG (27-34); Mean Corpuscular Volume 81.2 FL (87-102); Mean Platelet Volume 11.3 FL (9.6-12.0); Monocytes # 0.6 10*3/uL (0.11-0.8); Monocytes % 6.5 % (1.7-12.7); Neutrophils # 7.9 10*3/uL (1.4-7.4); Neutrophils % 83.6 % (38.7-73.9); Platelet Count 328 T/CUMM (130-400); Red Blood Count 3.56 MC/CUMM (3.8-5.5); Red Cell Distribution Width 17.1 % (9.3-17.3); White Blood Count 9.4 T/CUMM (4-12)
[2017-10-13 06:14] LABS: Calcium 7.3 MG/DL (8.5-10.1); Osmolality,Calculated 278.5 MOS/KG (273-304); Potassium 4.1 MMOL/L (3.5-5.1)
[2017-10-13] MEDS: VANCOMYCIN INJ 1,750 MG in SODIUM CHLORIDE 0.9% 500 ML IV SCH ×3 (06:31→20:57)
[2017-10-13] MEDS: DORNASE ALFA 2.5 MG/2.5 ML VIAL RESP TX SCH ×2 (08:17→19:46)
[2017-10-13] MEDS: MONTELUKAST 10 MG TABLET PO SCH ×2 (10:03→20:55)
[2017-10-13] MEDS: PANTOPRAZOLE 40 MG VIAL IV SCH ×2 (10:03→20:45)
[2017-10-13] MEDS: methylPREDNISolone SOD SUC 40 MG/1 ML VIAL IV SCH (10:04)
[2017-10-13] MEDS: DOCUSATE SODIUM 100 MG CAPSULE PO SCH ×2 (10:04→20:50)
[2017-10-13] MEDS: MULTIVITAMIN (CENTRUM) TABLET PO SCH (10:04)
[2017-10-13] MEDS: TRACE ELEMENTS (5) 1 ML, MULTIVITAMIN INJ 10 ML in AMINO ACIDS/DEXT/LYTE 4.25-15% 2,000 ML IV SCH (10:23)
[2017-10-13] MEDS: CHANTIX 1MG PO SCH ×2 (13:08→20:56)
[2017-10-13] MEDS: FLUTICASONE/SALMETEROL 250-50 DISKUS 14 DOSE INH SCH ×2 (13:08→22:38)
[2017-10-13] MEDS: ACETAMINOPHEN 325 MG TABLET PO PRN (20:49)
[2017-10-13] MEDS: ENOXAPARIN 40 MG/0.4 ML SYRINGE SUBCUT SCH (20:51)
[2017-10-14] MEDS: ALBUTEROL/IPRATROPIUM 3 ML NEB RESP TX SCH ×4 (01:00→19:36)
[2017-10-14] MEDS: PIPERACILLIN/TAZOBACTAM 3,375 MG in SODIUM CHLORIDE 0.9% 100 ML IV SCH ×3 (01:23→18:46)
[2017-10-14] MEDS: VANCOMYCIN INJ 1,750 MG in SODIUM CHLORIDE 0.9% 500 ML IV SCH ×3 (05:33→22:54)
[2017-10-14 05:47] LABS: Basophils % 0.1 % (0.0-0.8); Eosinophils # 0.1 10*3/uL (0.0-0.87); Eosinophils % 0.9 % (0.00-10.9); Hematocrit 29.7 VOL% (42.0-52.0); Hemoglobin 9.8 GM/DL (14.0-18.0); Immature Granulocytes % 0.9 %; Immature Granulocytes Absolute 0.08 #; Lymphocytes # 1.5 10*3/uL (1.4-4.0); Lymphocytes % 17.3 % (21.2-54.2); Mean Corpuscular Hemoglobin 26 PG (27-34); Mean Corpuscular Volume 77.7 FL (87-102); Mean Platelet Volume 11.9 FL (9.6-12.0); Monocytes # 0.8 10*3/uL (0.11-0.8); Monocytes % 8.9 % (1.7-12.7); Neutrophils # 6.4 10*3/uL (1.4-7.4); Neutrophils % 71.9 % (38.7-73.9); Platelet Count 389 T/CUMM (130-400); Red Blood Count 3.82 MC/CUMM (3.8-5.5); Red Cell Distribution Width 17.2 % (9.3-17.3); White Blood Count 8.9 T/CUMM (4-12)
[2017-10-14 06:13] LABS: Calcium 7.6 MG/DL (8.5-10.1); Osmolality,Calculated 271.7 MOS/KG (273-304); Potassium 3.4 MMOL/L (3.5-5.1)
[2017-10-14] MEDS: DORNASE ALFA 2.5 MG/2.5 ML VIAL RESP TX SCH ×2 (07:35→19:44)
[2017-10-14] MEDS: MULTIVITAMIN (CENTRUM) TABLET PO SCH (08:48)
[2017-10-14] MEDS: DOCUSATE SODIUM 100 MG CAPSULE PO SCH ×2 (08:48→21:05)
[2017-10-14] MEDS: ERGOCALCIFEROL 50,000 UNIT CAPSULE PO SCH (08:48)
[2017-10-14] MEDS: MONTELUKAST 10 MG TABLET PO SCH ×2 (08:48→21:05)
[2017-10-14] MEDS: PANTOPRAZOLE 40 MG VIAL IV SCH (08:49)
[2017-10-14] MEDS: CHANTIX 1MG PO SCH ×2 (08:49→21:10)
[2017-10-14] MEDS: FLUTICASONE/SALMETEROL 250-50 DISKUS 14 DOSE INH SCH ×2 (08:50→21:05)
[2017-10-14] MEDS ORDERED: POTASSIUM CHLORIDE 20 MEQ TABLET PO ONE (15:17)
[2017-10-14] MEDS ORDERED: CALCIUM GLUCONATE 2,000 MG in SODIUM CHLORIDE 0.9% 100 ML IV ONE (15:18)
[2017-10-14] MEDS: methylPREDNISolone SOD SUC 40 MG/1 ML VIAL IV SCH ×2 (18:45→23:27)
[2017-10-14] MEDS: FLUCONAZOLE 200 MG TABLET PO SCH (18:46)
[2017-10-14] MEDS ORDERED: CALCIUM CHLORIDE 2,000 MG in SODIUM CHLORIDE 0.9% 250 ML IV ONE (20:00)
[2017-10-14] MEDS: PANTOPRAZOLE 40 MG TABLET PO SCH (21:05)
[2017-10-14] MEDS: ENOXAPARIN 40 MG/0.4 ML SYRINGE SUBCUT SCH (21:05)
[2017-10-15] MEDS: ALBUTEROL/IPRATROPIUM 3 ML NEB RESP TX SCH ×3 (00:18→12:38)
[2017-10-15] MEDS: PIPERACILLIN/TAZOBACTAM 3,375 MG in SODIUM CHLORIDE 0.9% 100 ML IV SCH ×2 (00:59→10:07)
[2017-10-15] MEDS: VANCOMYCIN INJ 1,750 MG in SODIUM CHLORIDE 0.9% 500 ML IV SCH ×2 (05:19→14:00)
[2017-10-15 05:51] LABS: Calcium 8.4 MG/DL (8.5-10.1); Osmolality,Calculated 267.2 MOS/KG (273-304); Potassium 4.4 MMOL/L (3.5-5.1)
[2017-10-15] MEDS: DORNASE ALFA 2.5 MG/2.5 ML VIAL RESP TX SCH (06:53)
[2017-10-15] MEDS: methylPREDNISolone SOD SUC 40 MG/1 ML VIAL IV SCH (10:06)
[2017-10-15] MEDS: PANTOPRAZOLE 40 MG TABLET PO SCH (10:07)
[2017-10-15] MEDS: MONTELUKAST 10 MG TABLET PO SCH (10:07)
[2017-10-15] MEDS: MULTIVITAMIN (CENTRUM) TABLET PO SCH (10:07)
[2017-10-15] MEDS: FLUCONAZOLE 200 MG TABLET PO SCH (10:07)
[2017-10-15] MEDS: DOCUSATE SODIUM 100 MG CAPSULE PO SCH (10:07)
[2017-10-15] MEDS: CHANTIX 1MG PO SCH (10:08)
[2017-10-15] MEDS: FLUTICASONE/SALMETEROL 250-50 DISKUS 14 DOSE INH SCH (10:08)
[2017-10-15 10:51] VITALS: BP 109/62
[2017-10-25] MEDS ORDERED: CYANOCOBALAMIN 1000 MCG/1 ML VIAL IM SCH (09:00)
== END 2017-10-15 15:34 | disposition home health service (06) | DRG 329 ==
LOC: N.ED 13:19 → N.EDINP 17:23 → SUATTDRO 17:23 → N.3E 18:47 → N.CC 10-09 14:49 → N.3E 10-13 23:37
PROVIDERS: ATTEND Internal Medicine

== ENCOUNTER 2018-05-13 07:45 | Inpatient (IN) ==
[2018-05-07 13:37] LABS: Basophils # 0.1 10*3/uL (0.0-0.2); Basophils % 0.8 % (0.0-0.8); Eosinophils # 0.4 10*3/uL (0.0-0.87); Eosinophils % 5.8 % (0.00-10.9); Hematocrit 33.9 VOL% (42.0-52.0); Hemoglobin 10.9 GM/DL (14.0-18.0); Immature Granulocytes % 0.5 %; Immature Granulocytes Absolute 0.03 #; Lymphocytes # 2.1 10*3/uL (1.4-4.0); Lymphocytes % 32.3 % (21.2-54.2); Mean Corpuscular HGB Conc 32.2 GM/DL (32-36); Mean Corpuscular Hemoglobin 26 PG (27-34); Mean Corpuscular Volume 81.5 FL (87-102); Mean Platelet Volume 10.8 FL (9.6-12.0); Monocytes # 0.8 10*3/uL (0.11-0.8); Monocytes % 11.6 % (1.7-12.7); Neutrophils # 3.2 10*3/uL (1.4-7.4); Platelet Count 279 T/CUMM (130-400); Red Blood Count 4.16 MC/CUMM (3.8-5.5); White Blood Count 6.6 T/CUMM (4-12)
[2018-05-07 13:56] LABS: Calcium 8.5 MG/DL (8.5-10.1); Osmolality,Calculated 270.8 MOS/KG (273-304); Potassium 3.5 MMOL/L (3.5-5.1)
[~2018-05-13 07:45] MED LIST: ALVIMOPAN 12 MG CAPSULE PO ONE; cefOXitin 1,000 MG in SYRINGE 1 EACH IV ONE
[2018-05-13] MEDS: LACTATED RINGERS 1,000 ML IV SCH ×2 (10:05→15:30)
[2018-05-13] MEDS ORDERED: FAMOTIDINE 20 MG TABLET PO STA (10:55)
[2018-05-13] MEDS ORDERED: ALBUTEROL/IPRATROPIUM 3 ML NEB RESP TX STA (10:55)
[2018-05-13] MEDS ORDERED: FAMOTIDINE 20 MG TABLET ONE (11:01)
[2018-05-13] MEDS ORDERED: ALVIMOPAN 12 MG CAPSULE ONE (11:01)
[2018-05-13 13:50] LABS: Apearance,Urine Slightly Hazy (Clear); Bilirubin,Urine Negative (Negative); Blood, Urine Negative (Negative); Glucose,Urine (UA) Negative (Negative); Ketones,Urine 5 mg/dL (Negative); Nitrite,Urine Negative (Negative); Protein,Urine Negative; RBC,Urine 1 /HPF (0-4); Squamous Epithelial Cell,Urine Occasional /HPF (0-10); Urine Color Yellow (Yellow); Urine Specific Gravity 1.017 (1.001-1.035); Urine Urobilinogen < 2.0 EU/DL (0.2-1.0); WBC,Urine 1 /HPF (0-6)
[2018-05-13] MEDS ORDERED: ALBUTEROL/IPRATROPIUM 3 ML NEB RESP TX ONE ×2 (13:53→13:57)
[2018-05-13] MEDS ORDERED: MIDAZOLAM 2 MG/2 ML VIAL ONE (14:00)
[2018-05-13] MEDS ORDERED: fentaNYL 100 MCG/2 ML VIAL ONE (14:00)
[2018-05-13] MEDS ORDERED: PHENYLEPHRINE 1 MG/10 ML SYRINGE IV ONE (14:01)
[2018-05-13] MEDS ORDERED: PROPOFOL 200 MG/20 ML VIAL IV ONE (14:01)
[2018-05-13] MEDS ORDERED: methylPREDNISolone SOD SUC 125 MG/2 ML VIAL ONE (14:02)
[2018-05-13] MEDS ORDERED: ONDANSETRON 4 MG/2 ML VIAL ONE (14:02)
[2018-05-13] MEDS ORDERED: ROCURONIUM 100 MG/10 ML VIAL IV ONE (14:02)
[2018-05-13] MEDS ORDERED: ACETAMINOPHEN 325 MG TABLET PO PRN (14:33)
[2018-05-13] MEDS ORDERED: ALBUTEROL/IPRATROPIUM 3 ML NEB RESP TX PRN (14:33)
[2018-05-13] MEDS: KETOROLAC 15 MG/1 ML VIAL IV PRN (15:48)
[2018-05-13] MEDS: cefOXitin 2,000 MG in SYRINGE 1 EACH IV SCH (18:35)
[2018-05-13] MEDS: ALBUTEROL/IPRATROPIUM 3 ML NEB RESP TX SCH (19:21)
[2018-05-13] MEDS: FLUTICASONE/SALMETEROL 250-50 DISKUS 14 DOSE INH SCH (21:37)
[2018-05-13] MEDS: ALVIMOPAN 12 MG CAPSULE PO SCH (21:38)
[2018-05-14] MEDS: cefOXitin 2,000 MG in SYRINGE 1 EACH IV SCH ×2 (00:13→05:50)
[2018-05-14] MEDS: LACTATED RINGERS 1,000 ML IV SCH ×3 (03:20→20:25)
[2018-05-14 05:15] LABS: Basophils % 0.2 % (0.0-0.8); Eosinophils % 0.1 % (0.00-10.9); Hematocrit 29.7 VOL% (42.0-52.0); Hemoglobin 9.6 GM/DL (14.0-18.0); Immature Granulocytes % 0.5 %; Immature Granulocytes Absolute 0.06 #; Lymphocytes # 1.8 10*3/uL (1.4-4.0); Lymphocytes % 16.2 % (21.2-54.2); Mean Corpuscular HGB Conc 32.3 GM/DL (32-36); Mean Corpuscular Hemoglobin 26 PG (27-34); Mean Corpuscular Volume 81.1 FL (87-102); Mean Platelet Volume 11.8 FL (9.6-12.0); Monocytes # 1.1 10*3/uL (0.11-0.8); Monocytes % 9.9 % (1.7-12.7); Neutrophils % 73.1 % (38.7-73.9); Platelet Count 250 T/CUMM (130-400); Red Blood Count 3.66 MC/CUMM (3.8-5.5); Red Cell Distribution Width 15.8 % (9.3-17.3)
[2018-05-14 05:32] LABS: Osmolality,Calculated 273.8 MOS/KG (273-304); Potassium 3.8 MMOL/L (3.5-5.1)
[2018-05-14] MEDS: MORPHINE 4 MG/1 ML VIAL IV PRN ×4 (05:50→20:21)
[2018-05-14] MEDS: LEVOTHYROXINE 75 MCG TABLET PO SCH (06:48)
[2018-05-14] MEDS: ALBUTEROL/IPRATROPIUM 3 ML NEB RESP TX SCH ×3 (07:30→19:36)
[2018-05-14] MEDS: PANTOPRAZOLE 40 MG VIAL IV SCH (08:33)
[2018-05-14] MEDS: ALVIMOPAN 12 MG CAPSULE PO SCH ×2 (08:33→20:22)
[2018-05-14] MEDS: KETOROLAC 15 MG/1 ML VIAL IV PRN (08:35)
[2018-05-14] MEDS: FLUTICASONE/SALMETEROL 250-50 DISKUS 14 DOSE INH SCH ×2 (10:57→20:24)
[2018-05-15] MEDS: MORPHINE 4 MG/1 ML VIAL IV PRN ×4 (01:28→18:39)
[2018-05-15] MEDS: ONDANSETRON 4 MG/2 ML VIAL IV PRN ×3 (04:22→21:29)
[2018-05-15] MEDS: LACTATED RINGERS 1,000 ML IV SCH ×4 (05:22→21:31)
[2018-05-15] MEDS: ALBUTEROL/IPRATROPIUM 3 ML NEB RESP TX SCH ×4 (07:21→19:15)
[2018-05-15] MEDS: LEVOTHYROXINE 75 MCG TABLET PO SCH (08:00)
[2018-05-15 08:35] LABS: Hematocrit 32.5 VOL% (42.0-52.0); Hemoglobin 10.4 GM/DL (14.0-18.0)
[2018-05-15] MEDS: ALVIMOPAN 12 MG CAPSULE PO SCH ×2 (09:00→21:30)
[2018-05-15] MEDS: PANTOPRAZOLE 40 MG VIAL IV SCH (09:01)
[2018-05-15] MEDS: FLUTICASONE/SALMETEROL 250-50 DISKUS 14 DOSE INH SCH ×2 (10:28→21:30)
[2018-05-15] MEDS ORDERED: ALBUTEROL/IPRATROPIUM 3 ML NEB RESP TX STA (12:28)
[2018-05-15] MEDS ORDERED: PROPOFOL 200 MG/20 ML VIAL IV ONE (12:30)
[2018-05-15] MEDS ORDERED: LIDOCAINE 2% 5 ML VIAL ONE (12:30)
[2018-05-16] MEDS: MORPHINE 4 MG/1 ML VIAL IV PRN ×5 (00:15→20:08)
[2018-05-16 06:45] LABS: Basophils % 0.1 % (0.0-0.8); Eosinophils % 0.2 % (0.00-10.9); Hematocrit 34.2 VOL% (42.0-52.0); Hemoglobin 10.8 GM/DL (14.0-18.0); Immature Granulocytes % 0.4 %; Immature Granulocytes Absolute 0.04 #; Lymphocytes # 1.6 10*3/uL (1.4-4.0); Mean Corpuscular HGB Conc 31.6 GM/DL (32-36); Mean Corpuscular Hemoglobin 26 PG (27-34); Mean Corpuscular Volume 82.8 FL (87-102); Mean Platelet Volume 11.3 FL (9.6-12.0); Monocytes # 1.2 10*3/uL (0.11-0.8); Monocytes % 12.8 % (1.7-12.7); Neutrophils # 6.4 10*3/uL (1.4-7.4); Neutrophils % 69.5 % (38.7-73.9); Platelet Count 255 T/CUMM (130-400); Red Blood Count 4.13 MC/CUMM (3.8-5.5); Red Cell Distribution Width 15.6 % (9.3-17.3); White Blood Count 9.3 T/CUMM (4-12)
[2018-05-16] MEDS: ALBUTEROL/IPRATROPIUM 3 ML NEB RESP TX SCH ×3 (07:01→19:42)
[2018-05-16 07:08] LABS: Calcium 8.3 MG/DL (8.5-10.1); Osmolality,Calculated 266.2 MOS/KG (273-304); Potassium 3.9 MMOL/L (3.5-5.1)
[2018-05-16] MEDS: LEVOTHYROXINE 75 MCG TABLET PO SCH (07:28)
[2018-05-16] MEDS: LACTATED RINGERS 1,000 ML IV SCH ×3 (10:08→20:07)
[2018-05-16] MEDS: PANTOPRAZOLE 40 MG VIAL IV SCH (10:10)
[2018-05-16] MEDS: FLUTICASONE/SALMETEROL 250-50 DISKUS 14 DOSE INH SCH ×2 (10:10→20:08)
[2018-05-16] MEDS: ALVIMOPAN 12 MG CAPSULE PO SCH (10:11)
[2018-05-16] MEDS: ONDANSETRON 4 MG/2 ML VIAL IV PRN (21:22)
[2018-05-17] MEDS: MORPHINE 4 MG/1 ML VIAL IV PRN ×2 (00:23→04:59)
[2018-05-17] MEDS: ONDANSETRON 4 MG/2 ML VIAL IV PRN (04:59)
[2018-05-17] MEDS: LEVOTHYROXINE 75 MCG TABLET PO SCH (06:43)
[2018-05-17] MEDS: PANTOPRAZOLE 40 MG VIAL IV SCH ×2 (07:35→08:25)
[2018-05-17] MEDS: ALBUTEROL/IPRATROPIUM 3 ML NEB RESP TX SCH ×3 (07:38→21:07)
[2018-05-17] MEDS: FLUTICASONE/SALMETEROL 250-50 DISKUS 14 DOSE INH SCH ×2 (08:24→20:24)
[2018-05-17] MEDS: LACTATED RINGERS 1,000 ML IV SCH (15:56)
[2018-05-18] MEDS: LACTATED RINGERS 1,000 ML IV SCH (01:25)
[2018-05-18] MEDS: LEVOTHYROXINE 75 MCG TABLET PO SCH (06:01)
[2018-05-18] MEDS: ALBUTEROL/IPRATROPIUM 3 ML NEB RESP TX SCH (07:11)
[2018-05-18] MEDS: FLUTICASONE/SALMETEROL 250-50 DISKUS 14 DOSE INH SCH (09:11)
[2018-05-18] MEDS: PANTOPRAZOLE 40 MG VIAL IV SCH (09:11)
[2018-05-18 14:33] VITALS: BP 155/76
== END 2018-05-18 13:15 | disposition home or self-care (01) | DRG 329 ==
LOC: N.SDSINP 09:41 → N.5E 14:45
PROVIDERS: ADMIT Surgery; ATTEND Surgery

== ENCOUNTER 2019-11-28 09:55 | Observation (INO) ==
[2019-11-28 11:23] LABS: Basophils % 0.8 % (0.0-0.8); Eosinophils # 0.1 10*3/uL (0.0-0.87); Eosinophils % 3.5 % (0.00-10.9); Hematocrit 34.7 VOL% (42.0-52.0); Hemoglobin 11.7 GM/DL (14.0-18.0); Lymphocytes # 0.9 10*3/uL (1.4-4.0); Lymphocytes % 22.9 % (21.2-54.2); Mean Corpuscular HGB Conc 33.7 GM/DL (32-36); Mean Corpuscular Volume 95.1 FL (87-102); Mean Platelet Volume 10.8 FL (9.6-12.0); Monocytes % 14.3 % (1.7-12.7); Neutrophils % 58.5 % (38.7-73.9); Platelet Count 177 T/CUMM (130-400); Red Blood Count 3.65 MC/CUMM (3.8-5.5); Red Cell Distribution Width 16.3 % (9.3-17.3)
[2019-11-28 11:35] LABS: INR 1.1; PT Patient Result 11.4 SECS (9.8-11.9)
[2019-11-28 11:46] LABS: Albumin 3.4 G/DL (3.4-5.0); Calcium 8.3 MG/DL (8.5-10.1); Osmolality,Calculated 273.5 MOS/KG (273-304)
[2019-11-28] MEDS ORDERED: DEXAMETHASONE 10 MG/1 ML VIAL ONE (11:53)
[2019-11-28] MEDS ORDERED: DEXAMETHASONE 10 MG/1 ML VIAL IV STA (11:53)
[2019-11-28] MEDS ORDERED: guaiFENesin/DM ER 600-30 MG TABLET PO PRN (14:59)
[2019-11-28] MEDS ORDERED: diphenhydrAMINE CAP 25 MG CAPSULE PO PRN (14:59)
[2019-11-28] MEDS ORDERED: DEXTROSE 50% 25 GM/50 ML VIAL IV PRN (14:59)
[2019-11-28] MEDS ORDERED: ALUMINUM/MAGNES/SIMETH MAX STR 30 ML UDCUP PO PRN (14:59)
[2019-11-28] MEDS ORDERED: ZALEPLON 5 MG CAPSULE PO PRN (14:59)
[2019-11-28] MEDS ORDERED: DOCUSATE SODIUM 100 MG CAPSULE PO PRN (14:59)
[2019-11-28] MEDS ORDERED: GLUCAGON 1 MG VIAL IM PRN (14:59)
[2019-11-28] MEDS ORDERED: NICOTINE 21 MG/24 HR PATCH TRANSDERM PRN (14:59)
[2019-11-28] MEDS ORDERED: ONDANSETRON 4 MG/2 ML VIAL IV PRN (14:59)
[2019-11-28] MEDS ORDERED: SIMETHICONE CHEW 125 MG TABLET PO PRN (14:59)
[2019-11-28] MEDS ORDERED: FLUCONAZOLE 150 MG TABLET PO SCH (15:00)
[2019-11-28 15:40] LABS: Apearance,Urine CLEAR (Clear); Bacteria,Urine Occasional /HPF (Few); Bilirubin,Urine Negative (Negative); Blood, Urine Negative (Negative); Glucose,Urine (UA) Negative (Negative); Ketones,Urine Negative (Negative); Mucus,Urine Occasional /LPF (Occasional); Nitrite,Urine Negative (Negative); Protein,Urine Negative; RBC,Urine 1 /HPF (0-4); Squamous Epithelial Cell,Urine Occasional /HPF (0-10); Urine Color Yellow (Yellow); Urine Specific Gravity 1.018 (1.001-1.035); Urine Urobilinogen < 2.0 EU/DL (0.2-1.0); WBC,Urine 1 /HPF (0-6)
[2019-11-28] MEDS ORDERED: ENOXAPARIN 40 MG/0.4 ML SYRINGE ONE (15:50)
[2019-11-28] MEDS: ENOXAPARIN 40 MG/0.4 ML SYRINGE SUBCUT SCH (16:00)
[2019-11-28] MEDS: DEXAMETHASONE 4 MG TABLET PO SCH (20:51)
[2019-11-29 05:32] LABS: Hematocrit 33.8 VOL% (42.0-52.0); Hemoglobin 11.1 GM/DL (14.0-18.0); Lymphocytes # 0.6 10*3/uL (1.4-4.0); Lymphocytes % 44.9 % (21.2-54.2); Mean Corpuscular HGB Conc 32.8 GM/DL (32-36); Mean Corpuscular Volume 96.3 FL (87-102); Mean Platelet Volume 11.7 FL (9.6-12.0); Monocytes % 9.4 % (1.7-12.7); Neutrophils % 45.7 % (38.7-73.9); Platelet Count 159 T/CUMM (130-400); Red Blood Count 3.51 MC/CUMM (3.8-5.5); Red Cell Distribution Width 16.2 % (9.3-17.3); White Blood Count 1.3 T/CUMM (4-12)
[2019-11-29 06:00] LABS: Band Neutrophils 1 % (0-10); Hypochromasia 1+; Lymphocytes 33 % (20-55); Ovalocytes Slight; Platelet Estimate Adequate; Segmented Neutrophils 57 % (50-85); Total Cells Counted 100
[2019-11-29 06:01] LABS: Atypical Lymphocytes Few
[2019-11-29 06:14] LABS: Calcium 8.6 MG/DL (8.5-10.1); Osmolality,Calculated 270.1 MOS/KG (273-304); Risk Ratio 4.51; Thyroid Stimulating Hormone 3.91 uIU/ml (0.358-3.74); VLDL CHOLESTEROL 23.2 MG/DL
[2019-11-29] MEDS ORDERED: LEVOTHYROXINE 50 MCG TABLET PO SCH (07:30)
[2019-11-29] MEDS ORDERED: LEVOTHYROXINE 200 MCG TABLET PO SCH (07:30)
[2019-11-29] MEDS ORDERED: PANTOPRAZOLE 40 MG TABLET PO SCH (09:00)
[2019-11-29] MEDS ORDERED: CHOLECALCIFEROL 1,000 UNIT TABLET PO SCH (09:00)
[2019-11-29] MEDS ORDERED: MULTIVITAMIN (CENTRUM) TABLET PO SCH (09:00)
[2019-11-29] MEDS ORDERED: ASPIRIN 325 MG TABLET PO SCH (09:00)
[2019-11-29] MEDS ORDERED: NON-FORMULARY MEDICATION (Umeclidinium-Vilanterol [Anoro Ellipta] 1 inh) INH SCH (09:00)
[2019-11-29] MEDS: DEXAMETHASONE 4 MG TABLET PO SCH (09:17)
[2019-11-29] MEDS: ENOXAPARIN 40 MG/0.4 ML SYRINGE SUBCUT SCH (16:49)
[2019-11-29 16:54] VITALS: BP 131/69
[2019-12-24] MEDS ORDERED: CYANOCOBALAMIN 1000 MCG/1 ML VIAL IM SCH (09:00)
== END 2019-11-29 17:00 | disposition home or self-care (01) ==
LOC: N.EDINP 09:55 → N.ED 09:55 → N.4E 17:10
PROVIDERS: ADMIT Internal Medicine; ATTEND Internal Medicine